=== PATIENT | female | born 2005 | race Two or more races ===

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

== ENCOUNTER 2025-08-10 19:45 | Emergency (ER) | payer BC, SELFPAY ==
[2025-08-10 19:47] VITALS: BP 153/84
--- NOTE | 2025-08-10 20:36 | ED.MUSCINJ ---
HPI-Injury
General
Chief Complaint: Musculo-Skeletal Complaint
Source: patient
Exam Limitations: none
Time Seen by Provider: 08/10/25 20:19
Nursing documentation reviewed up to this point in time: agreed with
History of Present Illness-Injury
Is this injury a work related problem?: No
Is pt an associate of [facility]?: No
Initial Injury comments:
Patient to the emergency department with complaint of pain and swelling to left lateral ankle. She is currently a student at [employer], member of the volleyball team. She states she rolled her left ankle while playing volleyball tonight. Initially
she was unable to bear weight. Injury occurred just prior to arrival.
Past History
Past History
ED Past Medical History: None
Review of Systems
Review of Systems
Allergies reviewed?: Yes
All Other Systems: ROS reviewed and negative except as documented in HPI and ROS
Constitutional: Reports no symptoms
Musculoskeletal: Reports joint pain (Pain and swelling to the left lateral ankle)
Skin: Reports no symptoms
Neurological: Reports no symptoms
Psychiatric: Reports no symptoms
Musculoskeletal Injury Exam
Musculoskeletal Injury Exam
Left Lateral Ankle:
Pain with Movement?: Moderate
Tender to palpation?: Moderate
Soft tissue swelling?: Moderate
External deformity and angulation?: None
Joint effusion?: None
Contusion?: None
Hematoma-local bleeding into tissue?: None
Strain- Sprain- Tear (Connective tissue injury)?: Moderate
Crepitus with movement?: No
Joint instability?: No
Malalignment/deformity?: No
Range of motion: Limited
Distal skin color and temperature: normal-warm & good color
Capillary Refill: normal
Normal distal neurovascular exam?: Yes
Peripheral Pulses: posterior tibial (left): 3+ and dorsalis pedis (left): 3+
Phy Exam
General Physical Exam
General Presentation: well appearing and mild distress
General age: appears stated age
General Skin: warm and dry
General Habitus: normal
General Mental: alert
General Hydration: appears well hydrated
Musculoskeletal Exam
Musculoskeletal Exam: neuro vasc intact and other (Achilles intact, no tenderness base of fifth/proximal tib-fib)
Skin Exam
Skin Exam: normal color, warm/dry and no rash
Psychiatric Exam
Psychiatric Exam: normal mood/affect
Injury Course
Orders/Labs/Results
Orders:
Orders
08/10/25 19:51
Ankle, left 3 view CR [CR Ankle - Left Min 3 Views ] Urgent
Comment:
Reason For Exam: injury, unable to bear weight
08/10/25 20:36
Ortho Boot Left- Treatment ONCE
Short or tall?: Tall
*Radiology
Radiology exam reviewed: radiology read reviewed
*Pulse Oximetry
SaO2: 99
Oxygen Mode of Delivery: Room air
Patient hypoxic: no
*Critical Care Note
Total Time (30-74mins, 75-104mins- exclusive of procedures): Not Applicable
Update Note
Update Note:
Patient to the emergency department after rolling her left ankle while playing volleyball. She arrives with pain and swelling to left lateral ankle. Extremity is neurovascularly intact. X-ray reviewed, no evidence of fracture or dislocation. She
is placed in an orthopedic boot. She will be discharged home, given the number for orthopedic follow-up. She will also follow-up with the physical trainer at [facility]
ED Attending Note
-
Portions of this chart may have been created with voice recognition software.� Occasional wrong word or��sound alike� substitutions may have occurred due to the inherent limitations of voice recognition software.
Discharge Plan
Departure
Patient Disposition: Home (Routine Discharge)
Date of Disposition: 08/10/25
Time of Disposition: 20:40
Patient with high blood pressure during this ER visit?: No
Condition: Good
Covid-19: Not Applicable
Discharge Problem:
Ankle sprain
Instructions: Ibuprofen, Using Cold for Pain, Ankle sprain - ED (DC)
Prescriptions:
No Action
acetaminophen 325 mg Tablet
650 mg PO Q4HPRN PRN (Reason: mild pain) Qty: 0 0RF
ibuprofen 600 mg tablet
600 mg PO Q6H PRN (Reason: cramps) Qty: 1 0RF
Referrals:
Anthony Yoon MD [Active, Orthopedics] - Call in 1-3 days for appt
NONE,* [Family Provider, Internal Medicine]
Stand Alone Forms: Back to School
Interventions
Interventions:
*Risk Screen - Suicide Last Done: 08/10/25 19:47
*Neglect/Abuse Screening Last Done: 08/10/25 19:47
*ED- Fall Risk Assessment Last Done: 08/10/25 20:04
*ED COVID-19 Vaccine History Last Done: 08/10/25 20:04
*ED Influenza Vaccine History Last Done: 08/10/25 20:04
ED-Musculoskeletal Assessment Last Done: 08/10/25 20:05
Discharge Date and Time
Print Language: SLOVAK
[2025-08-10] MEDS: MOTRIN 600 MG PO (21:11)
== END 2025-08-10 21:16 | disposition home or self-care (01) ==
LOC: EMR 19:45
PROVIDERS: EMERGENCY PHYSICIAN Emergency Medicine
DX: S93.402A Sprain of unspecified ligament of left ankle, initial encounter (principal); X50.1XXA Overexertion from prolonged static or awkward postures, initial encounter; Y93.68 Activity, volleyball (beach) (court)
CPT/HCPCS: 99283; 73610

== ENCOUNTER 2025-08-11 08:13 | Emergency (ER) | payer BC, SELFPAY ==
--- NOTE | 2025-08-11 08:31 | ED.GENMED ---
History of Present Illness
General
Chief Complaint: Musculo-Skeletal Complaint
Source: patient
Time Seen by Provider: 08/11/25 08:26
History of Present Illness
History of Present Illness:
20-year-old female presents emergency room complaining of left ankle pain as well as having an episode today of feeling sweaty and lightheaded like might pass out. Patient injured her ankle yesterday while playing volleyball. She was seen here in
the emergency room had imaging which showed no fracture and was placed in a boot. The boot seemed to be making the pain worse. She did not take anything for pain this morning because she does not eat anything. She has been using crutches that
were provided yesterday.
Past History
Past History
ED Past Medical History: None
Phy Exam
Physical Exam
Physical Exam:
General: Awake, Alert, Oriented X3. No acute distress.
Vitals: unremarkable
Head: Atraumatic
Lungs: Clear and equal b/l
Heart: Regular rate, no murmurs
Neuro: Nonfocal
Skin: Warm, dry, no rash
Extremities: pulses equal b/l, swelling noted about the left ankle which is mild to moderate. Tender to palpation over the lateral malleolus. Some pain with compression of the calf. Mild ecchymosis noted lateral ankle.
Course
Orders/Labs/Results
Orders:
Orders
08/11/25 08:31
Splints/Slings/Crut- Treatment ONCE
Location: Left
Type of Splint: Short Leg
Ketorolac [Toradol] 30 mg IM NOW STA
08/11/25 08:33
Acetaminophen [Tylenol] 650 mg PO NOW STA
Vital Signs
Initial and Last Documented VS:
Initial Vital Signs
Temp Pulse Resp Pulse Ox
98.5 F 69 18 99
08/11/25 08:15 08/11/25 08:15 08/11/25 08:15 08/11/25 08:15
Last Documented Vital Signs
Temp Pulse Resp Pulse Ox
98.5 F 69 18 99
08/11/25 08:15 08/11/25 08:15 08/11/25 08:15 08/11/25 08:33
MDM/Problems Addressed
Differential Diagnosis Includes:
Ankle sprain, high ankle sprain, vasovagal event
MDM/Problems Addressed:
Patient suffering from increased pain today from ankle sprain. She does have some pain with compression of the calf suggesting she might have injury to the interosseous membrane as well as the ankle itself. We will place her in a posterior leg
splint, provide analgesia with Toradol and Tylenol. Recommend frequent use of ice. Stay completely nonweightbearing until she follows up with Ortho. I reviewed the x-rays and radiology report from yesterday's imaging. No fracture noted.
*Pulse Oximetry
SaO2: 99
Oxygen Mode of Delivery: Room air
Patient hypoxic: no
*Critical Care Note
Total Time (30-74mins, 75-104mins- exclusive of procedures): Not Applicable
ED Attending Note
-
Portions of this chart may have been created with voice recognition software.� Occasional wrong word or��sound alike� substitutions may have occurred due to the inherent limitations of voice recognition software.
Discharge Plan
Departure
Patient Disposition: Home (Routine Discharge)
Date of Disposition: 08/11/25
Time of Disposition: 09:12
Patient with high blood pressure during this ER visit?: No
Condition: Good
Discharge Problem:
Acute ankle pain, Ankle sprain
Instructions: Sprain (DC)
Prescriptions:
No Action
acetaminophen 325 mg Tablet
650 mg PO Q4HPRN PRN (Reason: mild pain) Qty: 0 0RF
ibuprofen 600 mg tablet
600 mg PO Q6H PRN (Reason: cramps) Qty: 1 0RF
Referrals:
NONE,* [Family Provider, Internal Medicine]
Activity Restrictions/Additional Instructions:
Apply ice to your ankle for 20 minutes at a time frequently. Call ortho this morning to make an appointment. Do not apply weight to that leg until you see ortho.
Interventions
Interventions:
*Risk Screen - Suicide Last Done: 08/11/25 08:16
*Nursing Disposition Last Done: 08/11/25 09:34
ED-Musculoskeletal Assessment Last Done: 08/11/25 08:59
Discharge Date and Time
Discharge Date/Time: 08/11/25 09:35
Print Language: BELGIAN
[2025-08-11] MEDS: TYLENOL 650 MG PO (08:46)
[2025-08-11] MEDS: TORADOL 30 MG IM (08:46)
== END 2025-08-11 09:35 | disposition home or self-care (01) ==
LOC: EMR 08:13
PROVIDERS: EMERGENCY PHYSICIAN Emergency Medicine
DX: S93.402A Sprain of unspecified ligament of left ankle, initial encounter (principal); X58.XXXA Exposure to other specified factors, initial encounter; Y93.68 Activity, volleyball (beach) (court)
CPT/HCPCS: 29515; 99284; 96372